=== PATIENT | male | born 1940 | race Caucasian/White ===

== ENCOUNTER → 2019-03-12 | Outpatient (CLI) | payer OTHER | END | disposition home or self-care (01) | LOC: CARD 12:16 | PROVIDERS: ATTEND Nurse Practitioner Family | DX: G31.84 Mild cognitive impairment of uncertain or unknown etiology (principal) | CPT/HCPCS: 95819 ==

== ENCOUNTER 2019-12-02 08:46 | Emergency (ER) | payer OTHER ==
[~2019-12-02] VITALS: Ht 180.3 cm; Wt 87.0 kg
--- NOTE | 2019-12-02 08:56 | NUR ---
CAITLIN GREEN, PT WITH SYNCOPAL EPISODE +LOC, WITNESSED AT [facility]ISTED LIVING. PT DENIES DIZZINESS, CP PRIOR TO SYNCOPAL EVENT. PT STATES HE FELT A "POP" IN LOWER BACK PRIOR TO FALL NOW HAVING "STRESS IN MY LOWER BACK"
[2019-12-02] MEDS ORDERED: SODIUM CHLORIDE FLUSH 10ML SYR IVF ONE (10:00)
[2019-12-02] MEDS ORDERED: SODIUM CHLORIDE 0.9% 1,000ML IVBOLUS ONE (10:00)
[2019-12-02] MEDS ORDERED: PLEASE ENTER ALLERGIES MC SCH (10:00)
[2019-12-02 10:08] LABS: BASOPHILS # (AUTO) 0.02 x10^3/uL (0-0.1); BASOPHILS % (AUTO) 0 % (0-1); EOSINOPHILS # (AUTO) 0.31 x10^3/uL (0-0.4); EOSINOPHILS % (AUTO) 4 % (1-7); LYMPHOCYTES # (AUTO) 1.62 x10^3/uL (1-3.4); LYMPHOCYTES % (AUTO) 19 % (22-44); MD NO; MEAN CORPUSCULAR HGB CONC 33.6 g/dL (33.2-36.2); MEAN CORPUSCULAR VOLUME 101.1 fL (81-97); MEAN PLATELET VOLUME 8.5 fL (7.4-10.4); MONOCYTES # (AUTO) 0.54 x10^3/uL (0.2-0.8); MONOCYTES % (AUTO) 6 % (2-9); NEUTROPHILS # (AUTO) 5.96 x10^3/uL (1.8-6.8); NEUTROPHILS % (AUTO) 71 % (42-75); PLATELET COUNT 183 x10^3/uL (130-400); RED BLOOD COUNT 4.48 x10^6/uL (4.38-5.82); RED CELL DISTRIBUTION WIDTH 13.7 % (9.4-14.8)
[2019-12-02 10:19] LABS: ALBUMIN 3.3 g/dL (3.4-5.0); ANION GAP 5 mmol/L (5-15); CALCIUM 8.7 mg/dL (8.5-10.1); CHLORIDE 106 mmol/L (98-107); CREATININE 0.87 mg/dL (0.7-1.3)
[2019-12-02 10:23] LABS: TROPONIN I < 0.015 ng/mL (0.000-0.045)
[2019-12-02] MEDS ORDERED: LATA7.5D OP (10:34)
[2019-12-02] MEDS ORDERED: CHOL2000 PO (10:34)
[2019-12-02] MEDS ORDERED: MULT-257 PO (10:34)
[2019-12-02] MEDS ORDERED: METF-754 PO (10:34)
[2019-12-02] MEDS ORDERED: RIVA20TA PO (10:34)
[2019-12-02] MEDS ORDERED: ATOR20TA37 PO (10:34)
[2019-12-02 11:04] VITALS: BP 121/75
--- NOTE | 2019-12-02 11:05 | NUR ---
PT RESTING ON GURNEY, BOLUS INFUSED, VSS, NAD NOTED
== END 2019-12-02 12:51 ==
LOC: ED 12:45
DX: R55 Syncope and collapse (principal); R42 Dizziness and giddiness; E11.9 Type 2 diabetes mellitus without complications; Z87.891 Personal history of nicotine dependence
CPT/HCPCS: 36415; 70450; 80048; 82040; 84484; 85025; 93005; 96360; 99284; J7030